=== PATIENT | female | born 1980 | race Caucasian/White ===

== ENCOUNTER 2020-06-19 17:32 | Emergency (ER) | payer OTHER ==
[~2020-06-19] VITALS: Ht 170.2 cm; Wt 120.0 kg
--- NOTE | 2020-06-19 18:55 | NUR ---
MRI called, they are on their way to get her radiology. Pt is in a gown. Informed she can go via w/c.
--- NOTE | 2020-06-19 19:46 | NUR ---
PT BACK IN THE ROOM
[2020-06-19 21:51] VITALS: BP 153/104
== END 2020-06-19 21:52 | disposition home or self-care (01) ==
LOC: ER 17:32
DX: R51.9 Headache, unspecified (principal); G43.909 Migraine, unspecified, not intractable, without status migrainosus
CPT/HCPCS: 70544; 99284

== ENCOUNTER 2020-07-03 08:30 | Day surgery (SDC) | payer OTHER ==
[~2020-07-03] VITALS: Ht 167.6 cm; Wt 121.2 kg
[2020-07-03 09:00] VITALS: BP 142/96
[2020-07-03] MEDS ORDERED: NO HOME MEDS (09:54)
[2020-07-03 12:35] VITALS: BP 140/84
[2020-07-03 12:45] VITALS: BP 138/72
[2020-07-03 13:00] VITALS: BP 125/79
[2020-07-03 13:15] VITALS: BP 129/84
[2020-07-03 13:23] LABS: GLUCOSE,CSF 31 MG/DL (40-75); TOTAL PROTEIN,CSF 20 MG/DL (15-45)
[2020-07-03 13:30] VITALS: BP 123/77
[2020-07-03 13:57] LABS: APPEARANCE,CSF CLOUDY
[2020-07-03 13:58] LABS: CSF RBC 1525 /CU MM (0); CSF SUPERNATANT COLOR OTHER; CSF VOLUME 8 ML; CSF WBC CT 2 /CU MM (0-5); TUBE# COUNTED 3
== END 2020-07-03 14:00 | disposition home or self-care (01) ==
LOC: SSTAY O 08:30
PROVIDERS: ATTEND Internal Medicine
DX: H47.10 Unspecified papilledema (principal); G43.909 Migraine, unspecified, not intractable, without status migrainosus; G93.2 Benign intracranial hypertension; Z72.89 Other problems related to lifestyle
CPT/HCPCS: 62328; 77003; 82945; 84157; 89051